=== PATIENT | male | born 1930 | race Caucasian/White ===

== ENCOUNTER → 2017-10-25 | Outpatient (CLI) | payer MEDICARE ==
[~2017-10-25] MED LIST: ACET500T68 PO; ASCO-182 PO; CLOT15CR6 TOP; DICY10CA11 PO; FAMO20TA28 PO; FINA5TAB67 PO; FLUT16SP19 NS; LUTE20TA PO; MELA1TAB2 PO; MOMR ENA; MULT-865 PO; NAPR220C12 PO; SAW160CA26 PO; SIME180C PO; SULF-198 PO; TAMS0.4C25 PO; TAMS0.4C70 PO; super beta prostate PO
== END ==
LOC: LAB 16:27
PROVIDERS: ATTEND Internal Medicine
DX: N40.0 Benign prostatic hyperplasia without lower urinary tract symptoms (principal); R35.0 Frequency of micturition; B95.8 Unspecified staphylococcus as the cause of diseases classified elsewhere
CPT/HCPCS: 81001; 87088

== ENCOUNTER 2017-12-08 10:51 | Outpatient (RCR) | payer MEDICARE ==
[2017-12-15] MEDS ORDERED: IOPAMIDOL 76% 50 ML INFUS BTL 50 ML ONE (10:10)
[2017-12-15] MEDS ORDERED: IOPAMIDOL 76% 75 ML INFUS BTL 75 ML ONE (10:11)
[2017-12-15] MEDS ORDERED: NS 0.9% 25 ML BAG 50 ML ONE (10:12)
--- NOTE | 2017-12-15 11:49 | RADIOLOGY IMAGING REPORT ---
FACILITY: [facility] [place] PATIENT NAME: Sanchez Solomon : 1930 MR: [id number] V: [id number] EXAM DATE: ORDERING PHYSICIAN: ANSHU AGARWAL TECHNOLOGIST: Location: [facility] [place] Patient: Sanchez Solomon : 1930 Visit/Account:[id number] Date of Sevice: 12/15/2017 ABDOMEN/PELVIS W/WO CONTRAST HISTORY: History of UTIs. Patient has no complaints except for prostate pain. TECHNIQUE: Axial images acquired through the abdomen/pelvis both with and without IV contrast.. Abdulaziz nal and sagittal reformatting also performed. One of the following dose optimization techniques was utilized in the performance of this exam: Automated exposure control; adjustment of the mA and/or kV according to the patient's size; or use of an iterative reconstruction technique. Specific details can be referenced in the facility's radiology CT exam operational policy. CONTRAST: 75 mL Isovue-370 COMPARISON: None. FINDINGS: Visualized lung bases: Negative. Hepatobiliary: Negative. Spleen: Negative. Adrenals: Negative. Pancreas: Negative. Kidneys ureters and bladder: There is a hypodense well-circumscribed nonenhancing lesion in the right posterior renal cortex which measures 2.4 x 1.2 cm diameter. It measures 28 Hounsfield units which i s denser than simple fluid. Left kidney normal. Urinary bladder is unremarkable with the exception of a small right lateral wall diverticulum.. Genitalia: Prostate is either very small or has been surgically removed. There is no evidence of pro sthetic enlargement. GI: Previous right hemicolectomy. GI tract otherwise unremarkable. No colonic diverticuli. Vessels/spaces/nodes: There is a fusiform infrarenal abdominal aortic aneurysm which begins 5 cm bel ow the renal arteries and terminates at the iliac bifurcation. It measures approximately 4.1 x 4.1 cm diameter. There is a mural thrombus seen through the aneurysm. There is extensive calcific plaque th rough the aorta and iliac arteries. This is causing high-grade stenosis at the origin of the left com mon iliac artery. Bones/soft tissues: Negative. Additional findings: None pertinent. 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 Advanced vasculopathy with extensive atherosclerotic disease. 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 Correlate clinically as to whether patient has any left leg claudication symptoms. 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 Neoplasia considered very unlikely but consider follow-up ultrasound in [address] ability. Prostate is either very small or has been surgically removed. Correlate clinically. Report Dictated By: Stanford Miller MD at 12/15/2017 11:30 AM Report E-Signed By: Stanford Miller MD at 12/15/2017 11:46 AM WSN:[id number]
== END 2017-12-15 18:00 | disposition home or self-care (01) ==
LOC: CT 10:51
PROVIDERS: ATTEND Urology
DX: N39.0 Urinary tract infection, site not specified (principal)
CPT/HCPCS: 36415; 74178; 82565; Q9967

== ENCOUNTER → 2018-04-06 | Outpatient (CLI) | payer MEDICARE ==
[2018-04-06 09:45] LABS: PLATELET COUNT, AUTOMATED 266 K/uL (150-450)
== END ==
LOC: LAB 09:18
PROVIDERS: ATTEND Internal Medicine
DX: Z12.5 Encounter for screening for malignant neoplasm of prostate (principal); N40.0 Benign prostatic hyperplasia without lower urinary tract symptoms; I71.4 Abdominal aortic aneurysm, without rupture; R53.83 Other fatigue
CPT/HCPCS: 36415; 81001; 84443; 85025; G0103; 82040; 82247; 82310; 82374; 82435; 82565; 82947; 84075; 84132; 84153; 84155; 84295; 84450; 84460; 84520

== ENCOUNTER → 2019-02-01 | Outpatient (REF) | payer MEDICARE ==
[~2019-02-01] MED LIST changes: +FLU180SY11 IM
== END ==
LOC: ZZSENDIN 15:53
PROVIDERS: ATTEND Urology
DX: N39.0 Urinary tract infection, site not specified (principal)
CPT/HCPCS: 87088